=== PATIENT | male | born 1960 | race Caucasian/White ===

== ENCOUNTER 2018-11-02 17:43 | Emergency (ER) | payer SELFPAY | END 2018-11-02 20:01 | disposition left against medical advice (07) | LOC: E/R 17:43 | DX: Z53.21 Procedure and treatment not carried out due to patient leaving prior to being seen by health care provider (principal) ==

== ENCOUNTER 2018-11-03 | Emergency (ER) | payer SELFPAY | END 2018-11-03 01:48 | disposition left against medical advice (07) | LOC: E/R | DX: Z53.21 Procedure and treatment not carried out due to patient leaving prior to being seen by health care provider (principal) ==